=== PATIENT | male | born 1940 | race African-American/Black ===

== ENCOUNTER 2017-12-22 09:13 | Day surgery (SDC) | payer OTHER ==
--- NOTE | 2017-12-21 16:27 | RAD REPORT ---
EXAM DESCRIPTION: RAD - Chest Pa And Lat (2 Views) - 12/21/2017 4:22 pm CLINICAL HISTORY: Hypertension Chest pain. COMPARISON: Chest Single View dated 08/05/2017; Chest Pa And Lat (2 Views) dated 07/27/2017; Abdomen 1 View (KUB) dated 06/04/2016; CHEST SINGLE VIEW dated 11/22/2014 FINDINGS: Bilateral pulmonary opacities are present likely representing pulmonary edema. The heart i s mildly to moderately enlarged in size. No displaced fractures. IMPRESSION: Mild CHF/ volume overload.
[2017-12-21 16:48] LABS: Absolute Lymphocytes (CBC) 0.9 K/uL (0.7-4.9); Absolute Monocytes 0.3 K/uL (0.1-1.3); Absolute Neutrophil 2.2 K/uL (1.8-8.0); Basophils % 1.4 % (0-1.3); Eosinophils % 3.9 % (0-4.4); Hematocrit 44.5 % (39.6-49.0); MCH 27.1 pg (27.0-35.0); MCV 83.4 fL (80-100); MPV 8.6 fL (7.6-11.3); Monocytes % 8.8 % (3.3-12.3); RBC Red Blood Cell Count 5.33 M/uL (4.33-5.43)
[2017-12-21 16:54] LABS: Protime INR 1.01
[2017-12-21 16:58] LABS: Urine Appearance CLEAR; Urine Bilirubin NEGATIVE (NEG); Urine Blood NEGATIVE (NEG); Urine Color YELLOW; Urine Glucose NEGATIVE (NEG); Urine Protein 1+ (NEG); Urine Specific Gravity 1.015 (1.005-1.030); Urine pH 7.5 (5.0-7.0)
[2017-12-21 17:02] LABS: Potassium 3.3 mmol/L (3.5-5.1)
[2017-12-21 17:05] LABS: Urine Microscopic Reflex NO UMIC
--- NOTE | 2017-12-21 20:36 | EKG ---
Test Date: 2017-12-21 Test Time: 16:39:42 Supervisor [employer]: FRANCIA MEASUREMENT RESULTS: Intervals: Rate: 66 DE: 328 QRSD: 104 QT: 418 QTc: 438 [place]: P: 68 DE: 328 QRS: 50 T: -21 INTERPRETIVE STATEMENTS: Sinus rhythm with 1st degree AV block with premature atrial complexes Minimal voltage criteria for LVH, may be normal variant Nonspecific T wave abnormality Abnormal ECG Compared to ECG 08/06/2017 08:10:07 Atrial premature complex(es) now present First degree AV block now present Left ventricular hypertrophy now present Atrial fibrillation no longer present Ventricular premature complex(es) no longer present Electronically Signed On 12-21-17 20:35:30 CDT by Holland Kim
[~2017-12-22 09:13] MED LIST: GENTAMICIN 100 MG/100 ML BAG 100 MG/100 ML BAG IV SCH
[2017-12-22] MEDS ORDERED: CEFAZOLIN/SWI 1gm 1 GM/10 ML SYR ONE (10:22)
[2017-12-22] MEDS ORDERED: Ringers Lactate 1,000 ML IV ONE (10:22)
[2017-12-22] MEDS ORDERED: LIDOCAINE 1% MPF 5 ML VIAL ONE (11:02)
[2017-12-22] MEDS ORDERED: MIDAZOLAM HCL 2 MG/2 ML INJ ONE (12:02)
[2017-12-22] MEDS: BUPIVACAINE 0.25% PF 10 ML VIAL ONE ×2 (12:02→12:09)
[2017-12-22] MEDS ORDERED: PROPOFOL 200 MG/20 ML VIAL IV ONE (12:02)
[2017-12-22] MEDS ORDERED: FENTANYL CITR 100 MCG/2 ML ONE (12:03)
[2017-12-22] MEDS ORDERED: LIDOCAINE 2% MPF 5 ML VIAL ONE (12:03)
[2017-12-22] MEDS ORDERED: GLYCOPYRROLATE 0.2 MG/ML SYR ONE (12:33)
[2017-12-22 15:25] VITALS: BP 145/82; TEMP 97.1; O2SAT 96
== END 2017-12-22 14:55 | disposition home or self-care (01) ==
LOC: OR 09:13
PROVIDERS: ATTEND Urology
PROC: 0VB70ZZ Excision of Left Tunica Vaginalis, Open Approach (ICD-10-PCS; principal; 2017-12-22 10:30)
DX: N43.3 Hydrocele, unspecified (principal); G89.4 Chronic pain syndrome; R53.83 Other fatigue; E66.9 Obesity, unspecified; I11.9 Hypertensive heart disease without heart failure; R60.9 Edema, unspecified; R00.1 Bradycardia, unspecified; Z85.46 Personal history of malignant neoplasm of prostate; I44.0 Atrioventricular block, first degree; N45.3 Epididymo-orchitis
CPT/HCPCS: 36415; 55040; 71046; 80048; 81003; 85025; 85610; 85730; 86850; 86900; 86901; 87086; 87088; 93005; J0690; J2250; J3010